=== PATIENT | male | born 1985 | race Caucasian/White ===

== ENCOUNTER 2019-06-14 17:34 | Emergency (ER) | payer SELFPAY ==
[2019-06-14 17:46] VITALS: BP 106/71; PULSE 69; RESP 18; TEMP 98.4
[2019-06-14] MEDS ORDERED: DIPH,PERTUS(ACELL)TETVAC-LF 0.5 ML VIAL IM ONE (18:13)
[2019-06-14] MEDS ORDERED: CEPHALEXIN 500 MG CAP PO STA (18:13)
--- NOTE | 2019-06-14 18:15 | ED ---
Recheck HPI - General Chief Complaint: Recheck/Abnormal Lab/Rx Stated Complaint: Blood Work Search Warrant/Taser Probes in Legs Time Seen by Provider: 06/14/19 17:50 Source: patient, police Mode of arrival: ambulatory Limitations: no limitations - History of Present Illness Initial Comments: 34-year-old male presenting for removal of tazor barbs andjail clearance. Patient is coming by police who state that patient was resisting arrest and was pulled over appearing intoxicated with warrant out for arrest. Patient was tazed. The barbs attached to clothes and in some areas skin.. Brought in for removal. [facility] clearance. She states she has no other complaints unsure of last tetanus. Patient denying intoxication. Patient smells of alcohol on history taking. - Related Data Previous Rx's Medication Instructions Recorded Cephalexin [Keflex] 500 mg PO Q8HR 5 Days #15 cap 06/14/19 Allergies Allergy/AdvReac Type Severity Reaction Status Date / Time No Known Allergies Allergy Verified 06/14/19 17:40 Review of Systems ROS Statement: Those systems with pertinent positive or pertinent negative responses have been documented in the HPI. ROS Other: All systems not noted in ROS Statement are negative. Past Medical History Past Medical History: No Reported History History of Any Multi-Drug Resistant Organisms: None Reported Past Surgical History: No Surgical Hx Reported Past Psychological History: No Psychological Hx Reported Smoking Status: Never smoker Past Alcohol Use History: None Reported, Daily, Heavy Past Drug Use History: None Reported General Exam - General Exam Comments Initial Comments: General: The patient is awake and alert, in no distress, and does not appear acutely ill. Eye: Pupils are equal, round and reactive to light, extra-ocular movements are intact. No nystagmus. There is normal conjunctiva bilaterally. No signs of icterus. Ears, nose, mouth and throat: There are moist mucous membranes and no oral lesions. Cardiovascular: There is a regular rate and rhythm. No murmur, rub or gallop is appreciated. Respiratory: Lungs are clear to auscultation, respirations are non-labored, breath sounds are equal. No wheezes, stridor, rales, or rhonchi. Gastrointestinal: Soft, non-distended, non-tender abdomen without masses or organomegaly noted. There is no rebound or guarding present. Musculoskeletal: Normal ROM, no tenderness. Strength 5/5. Sensation intact. Pulses equal bilaterally 2+. Neurological: A&O x 3. CN II-XII intact grossly, There are no obvious motor or sensory deficits. Coordination appears grossly intact. Speech is normal. Skin: Skin is warm and dry and no rashes or lesions are noted. 1 mauro in left mid back, one mauro in the left posterior thigh, 1 mauro embedding into hoody the other geeta. Psychiatric: Cooperative, appropriate mood & affect, normal judgment. Limitations: no limitations Course Vital Signs 06/14/19 17:41 Temperature 98.4 F Pulse Rate 69 Respiratory 18 Rate Blood Pressure 106/71 O2 Sat by Pulse 98 Oximetry Medical Decision Making - Medical Decision Making 34yo male presenting for cc of chcf clearance, tazor mauro removal. REMOVED tetanus updated patient prescribed prophylactic antibiotics for infection given the puncture wounds/dirty clothes they penetrated prior to penetrating skin. No other complaints. No other exam findings. Patient cleared for [facility]. Discharged appearing well. Disposition Clinical Impression: Skin foreign body Disposition: HOME SELF-CARE Condition: Good Instructions (If sedation given, give patient instructions): Puncture Wound (ED) Prescriptions: Cephalexin [Keflex] 500 mg PO Q8HR 5 Days #15 cap Is patient prescribed a controlled substance at d/c from ED?: No Referrals: None,Stated [Primary Care Provider] - 1-2 days Time of Disposition: 18:14
== END 2019-06-14 18:42 | disposition home or self-care (01) ==
LOC: EC 17:34
DX: S20.452A Superficial foreign body of left back wall of thorax, initial encounter (principal); S70.352A Superficial foreign body, left thigh, initial encounter; Z02.89 Encounter for other administrative examinations; Z23 Encounter for immunization; W45.8XXA Other foreign body or object entering through skin, initial encounter
CPT/HCPCS: 90471; 90715; 99283